=== PATIENT | male | born 1950 | race Caucasian/White ===

== ENCOUNTER → 2017-02-11 | Outpatient (CLI) | payer MEDICARE ==
[~2017-02-11] MED LIST: ABIL2TAB2 PO; ALPR0.5T3 PO; AMLO5TAB2 PO; AMLO5TAB96 PO; ASPI81 PO; ASPI81CH CHEW; CETI10 PO; DICY1TAB26 PO; DIGO0.25 PO; DIOV160T6 PO; DIOV160T60 PO; DYAZ PO; ECHI167T PO; ECHI1CAP; FENO145T2 PO; FLAX10002; FLUO40CA PO; GLIP5 PO; GLIP5TAB8 PO; GLUC1000 PO; IBUP-238 PO; LANO0.2510 PO; LOMO PO; LORA-392 PO; MAGN400T19 PO; METF1000 PO; METO25TA6 PO; OMEGCAP2 PO; OMEP20TA PO; ONCETAB7; PRAS1CAP PO; SOMA350T PO; TAB-TAB PO; TOPR50TA PO; TRAZ50TA12 PO; TRAZ50TA78 PO; TRIA37.53 PO; VITA250C3 CHEW; VITA500T10 PO; ZOFR4TAB3 PO
--- NOTE | 2017-02-15 10:37 | RSPPFT ---
DATE OF PROCEDURE: 02/11/17 COMMENTS: The forced vital capacity, FEV1, FEV1/FVC ratio and FEF 25-75 are all normal. There are no changes noted after bronchodilator. The total lung capacity and residual volumes are normal with a normal RV/TLC ratio. IMPRESSION: This is a normal pulmonary function study. The diffusion capacity is normal. Flow volume loop is also normal.
== END ==
LOC: HRSP 10:38
PROVIDERS: ATTEND Internal Medicine Cardiovascular Disease
DX: R06.02 Shortness of breath (principal)
CPT/HCPCS: 94060; 94726; 94729

== ENCOUNTER 2017-02-12 10:17 | Day surgery (SDC) | payer MEDICARE ==
[~2017-02-12] VITALS: Ht 175.3 cm; Wt 106.0 kg
[~2017-02-12 10:17] MED LIST changes: -ABIL2TAB2 PO; -ALPR0.5T3 PO; -AMLO5TAB2 PO; -ASPI81CH CHEW; -DIGO0.25 PO; -DIOV160T6 PO; -ECHI1CAP; -FLAX10002; -GLIP5TAB8 PO; -METF1000 PO; -METO25TA6 PO; -ONCETAB7; -TRAZ50TA12 PO; -TRIA37.53 PO; -VITA250C3 CHEW
[2017-02-12 10:35] VITALS: BP 171/87; PULSE 70; RESP 16; TEMP 98.1; O2SAT 98
[2017-02-12] MEDS ORDERED: GLIP5TAB8 PO (11:01)
[2017-02-12] MEDS ORDERED: VITA250C3 CHEW (11:01)
[2017-02-12] MEDS ORDERED: METF1000 PO (11:01)
[2017-02-12] MEDS ORDERED: TRIA37.53 PO (11:01)
[2017-02-12] MEDS ORDERED: DIOV160T6 PO (11:01)
[2017-02-12] MEDS ORDERED: ABIL2TAB2 PO (11:01)
[2017-02-12] MEDS ORDERED: ASPI81CH CHEW (11:01)
[2017-02-12] MEDS ORDERED: FENO145T2 PO (11:01)
[2017-02-12] MEDS ORDERED: FLAX10002 (11:01)
[2017-02-12] MEDS ORDERED: AMLO5TAB2 PO (11:01)
[2017-02-12] MEDS ORDERED: OMEP20TA PO (11:01)
[2017-02-12] MEDS ORDERED: SOMA350T PO (11:01)
[2017-02-12] MEDS ORDERED: ALPR0.5T3 PO (11:01)
[2017-02-12] MEDS ORDERED: TRAZ50TA12 PO (11:01)
[2017-02-12] MEDS ORDERED: DIGO0.25 PO (11:01)
[2017-02-12] MEDS ORDERED: ONCETAB7 (11:01)
[2017-02-12] MEDS ORDERED: ECHI1CAP (11:01)
[2017-02-12] MEDS ORDERED: METO25TA6 PO (11:01)
[2017-02-12 11:32] LABS: AUTOMATED NEUTROPHIL # 3.7 TH/MM3 (1.8-7.7); BASOPHIL % 0.7 % (0.0-2.0); EOSINOPHIL # 0.1 TH/MM3 (0-0.4); HEMATOCRIT 37.4 % (39.0-51.0); HEMO FLAGS DIFF FINAL; LYMPH % 25.5 % (9.0-44.0); LYMPHOCYTE # 1.5 TH/MM3 (1.0-4.8); MEAN CELL VOLUME 92.3 FL (80.0-100.0); MEAN CORPUSCULAR HEMOGLOBIN 32.9 PG (27.0-34.0); MEAN CORPUSCULAR HGB CONC 35.6 % (32.0-36.0); MONO % 10.3 % (0.0-8.0); NEUT % 62.5 % (16.0-70.0); PLATELET COUNT 182 TH/MM3 (150-450); RED BLOOD COUNT 4.05 MIL/MM3 (4.50-5.90); RED CELL DISTRIBUTION WIDTH 13.6 % (11.6-17.2); WHITE BLOOD COUNT 5.9 TH/MM3 (4.0-11.0)
[2017-02-12 11:37] LABS: APTT (PATIENT) 30.3 SEC (24.3-30.1); PROTHROMBIN TIME - PATIENT 10.7 SEC (9.8-11.6)
[2017-02-12 11:52] LABS: BICARBONATE 22.2 MEQ/L (21.0-32.0)
[2017-02-12 11:59] LABS: POTASSIUM 4.3 MEQ/L (3.5-5.1)
[2017-02-12] MEDS: SODIUM CHLOR 0.9% 1000 ML INJ 1,000 ML IV SCH ×3 (12:04→22:51)
[2017-02-12] MEDS ORDERED: ASPIRIN 325 MG TAB PO SCH (12:15)
[2017-02-12] MEDS ORDERED: HEPARIN-NS/PF INJ 500 ML ONE (13:04)
[2017-02-12] MEDS ORDERED: MIDAZOLAM HCL 2 MG/2 ML VIAL ONE ×3 (13:04→14:32)
[2017-02-12] MEDS ORDERED: diphenhydrAMINE HCL 50 MG/ML VIAL ONE (13:28)
[2017-02-12] MEDS ORDERED: HYDROCORTISONE SOD SUCCINATE 100 MG VIAL ONE (13:28)
[2017-02-12] MEDS ORDERED: ADENOSINE STRESS TEST INJ 90 MG/30 ML VIAL ONE (14:04)
[2017-02-12] MEDS ORDERED: HEPARIN SODIUM - IV 10,000 UNITS/10 ML VIAL ONE (14:04)
[2017-02-12] MEDS ORDERED: CLOPIDOGREL 300 MG TAB ONE (14:37)
[2017-02-12] MEDS ORDERED: ASPIRIN 81 MG CHEW TAB ONE (14:37)
--- NOTE | 2017-02-12 15:12 | CATHPROC ---
[employer] HIS Report Study Information Study Number Admission Scheduled Start Study Start 1055-17 Feb 12 2017 10:17AM 02/12/2017 Feb 12 2017 12:59PM [facility] Cardiac Catheterization Admit Source Facility Department Other [facility] - Design Assembler Physician and Clinical Staff Initial Ja Zamarripa Log Carrier Operator Kathleen Ruelas RN Recorder Huy Adam RCIS(BS) Scrub Max Martinez,RT(R) Procedures Performed Procedure Location (Site) Vessel Name Angiogram LV LV Ventricle Coronary Angiograms LCA Left Coronary Coronary Angiograms RCA Right Coronary Drug Eluting Inflatio LAD Mid Left Coronary L Heart Cath PTCA LAD Mid Left Coronary Wire insertion Fem Art (right) Femoral Art Equipment Time Souvenir Assembler Description Size Mfg Part Number Used/Scraped [id number] 14:26 Snipd CRITICAL CARE WIRE, Chronos TherapeuticsWATER 180CM 180CM Used *[id number] TRANSDUCER, TRUWAVE [id number] 13:26 QuantumID Technologies * Used W/STOCKCOCK *[id number] 14:31 BOSTON SCIENT[employer] STENT, SYNERGY 2.5 X 16MM Used *[id number] 14:11 BOSTON SCIENTIFIC VL3.5 GUIDE CATHETER RUNWAY FR 6 Used *[id number]- INTRODUCER SET, 13:26 COOK INC. FR 5 SC-NT-U-SST Used MICROPUNCTURE, STIFFENED *[id number] 538-476 *[id number] 538-420 *[id number] [id number] *[id number] 14:43 DAIG/ST. SONAL MEDICAL ANGIOSEAL, FR6 VIP FR 6 Used *[id number] 13:26 MEDLINE INDUSTRIES PACK, CCL CUSTOM * Used *[id number] 13:26 Fetch MD PACER PEN, SKIN DUAL W/ RULER * Used *[id number] BALLOON, 2.5 X 12MM NC [id number] 14:36 MEDTRONIC 12MM Used EUPHORA *[id number] 14:32 Fuse Powered Inc. 30 NIC INDEFLATOR Used *[id number]- 14:12 Ticket ABC MEDICAL SHEATH, FR6.5 PRELUDE 11CM FR 6.5 038ACT Used *[id number] 13:26 Fuse Powered Inc. WIRE, 3MMJ .035 180CM 180CM Used *[id number] PROBE COVER, STERILE [id number] 13:26 AmperionEK MEDICAL * Used ULTRASOUND W/ GEL *[id number] 13:26 NAMIC MANIFOLD, 4 PORT * Used *[id number] 13:26 NYCOMED OMNIPAQUE, 350 MG, 150ML 150ML [id number] Used [id number] 13:26 GARCIA MEDICAL BLANKET,WARM AIR CCL * Used *[id number] 13:26 TERUMO MEDICAL SHEATH, FR4 TERUMO (10CM) FR 4 [id number] Used 14:12 VOLCANO PRIME WIRE, VERRATA 185CM 185CM [id number] *[id number] Used Equipment Model, Serial, Lot Number and Expiration Data Description Model Number Serial Number Lot Number Expiration Date STENT, SYNERGY [id number] 09-22-2017 History: Current Medications Medication Dosage/Unit Route Frequency Last Date/Time Taken Beta David ASA History: Allergies Allergy Reaction Shrimp HIVES History: Risk Factors Family History of Hypertension Dyslipidemia Previous VA Previous Heart Failure Premature CAD Yes Yes Yes No No Prior Valve Prior PCI Prior CABG Surgery No No No Cerebrovascular Peripheral Artery Chronic Lung On Dialysis Diabetes Diabetes Therapy Disease Disease Disease No Yes Yes Yes Yes Oral History: Symptoms/Diagnosis Selection Items Chest pain History: Stress Tests Stress or Imaging Studies Performed Yes Standard Exercise Stress Test No Stress Echo No Stress Test SPECT Stress Test SPECT Result Stress Test SPECT Ischemia Risk/Extent Yes Positive Low Stress Test CMR No Cardiac CTA Coronary Calcium Score No No History: Other Current Smoker No Labs Hgb (g/dl) Hct (%) WBC (l/cumm) Platelets (thousands) 12.00-18.00 37.00-55.00 4.80-10.80 140.00-450.00 13.3 37.4 5.9 182 Glucose (mg/dl) BUN (mg/dl) Creatinine (mg/dl) BUN:Creatinine (1:x) 60.00-110.00 8.00-20.00 0.10-9.00 10.00-20.00 276 19 1.1 17.3 Na (meq/l) K (meq/l) 138.00-146.00 3.80-5.10 134 4.3 INR (PTT:PT) 0.50-2.00 1 CPK-MB (ng/ML) 0.00-7.00 Not Drawn Medication Medication Total Dose (Bolus/Oral) Medication Total Dosage/Unit 1% XYLOCAINE 20 mL ASPIRIN 162 mg BENADRYL 25 mg FENTANYL 75 mcg HEPARIN 6000 units NTG (IC) 200 mcg PLAVIX 600 mg SOLU-CORTEF 100 mg VERSED 5 mg Medications (Bolus/Oral) Medication Time Given Dosage/Unit Administered By Reason SOLU-CORTEF 02/12/2017 1:31:00 PM 100 mg Augustin Ruelasantha 100 mg SOLU-CORTEF given in lab by Kathleen Ruelas RN in Left Hand via Peripheral IV. Ordered by Ja Marin. BENADRYL 02/12/2017 1:32:00 PM 25 mg Kathleen Ruelas 25 mg BENADRYL given in lab by Kathleen Ruelas RN in Right Hand via Peripheral IV. Ordered by Ja Sainz. VERSED 02/12/2017 1:40:35 PM 2 mg Kathleen Ruelas 2 mg VERSED given in lab by Kathleen Ruelas RN in Left Hand via Peripheral IV. Ordered by Ja Segovia. FENTANYL 02/12/2017 1:41:00 PM 50 mcg Kathleen Ruelas 50 mcg FENTANYL given in lab by Kathleen Ruelas RN in Left Hand via Peripheral IV. Ordered by Ja Sainz. 1% XYLOCAINE 02/12/2017 1:41:08 PM 20 mL Kathleen Ruelas 20 mL 1% XYLOCAINE given in lab by Kathleen Ruelas RN in Right Groin via Subcutaneous. Ordered by Ja Segovia. VERSED 02/12/2017 1:55:28 PM 1 mg Kathleen Ruelas 1 mg VERSED given in lab by Kathleen Ruelas RN in Left Hand via Peripheral IV. Ordered by Ja Segovia. HEPARIN 02/12/2017 2:10:00 PM 5000 units Kathleen Ruelas 5000 units HEPARIN given in lab by Kathleen Ruelas RN in Left Hand via Peripheral IV. Ordered by Ja Marin. HEPARIN 02/12/2017 2:27:35 PM 1000 units Kathleen Ruelas 1000 units HEPARIN given in lab by Kathleen Ruelas RN in Left Hand via Peripheral IV. Ordered by Ja Marin. VERSED 02/12/2017 2:28:26 PM 1 mg Ruelas, Kathleen 1 mg VERSED given in lab by Kathleen Ruelas RN in Left Hand via Peripheral IV. Ordered by Ja Segovia. VERSED 02/12/2017 2:32:00 PM 1 mg Glenn Ruelasa 1 mg VERSED given in lab by Kathleen Ruelas RN in Left Hand via Peripheral IV. Ordered by Ja Segovia. FENTANYL 02/12/2017 2:33:13 PM 25 mcg Kathleen Ruelas 25 mcg FENTANYL given in lab by Kathleen Ruelas RN in Left Hand via Peripheral IV. Ordered by Ja Sainz. NTG (IC) 02/12/2017 2:35:09 PM 200 mcg Ja Sgeovia 200 mcg NTG (IC) given in lab by Ja Segovia via Intra-coronary. Ordered by Ja Segovia. PLAVIX 02/12/2017 2:50:00 PM 600 mg Kathleen Ruelas 600 mg PLAVIX given in lab by Kathleen Ruelas RN via Oral. Ordered by Ja Segovia. ASPIRIN 02/12/2017 2:50:00 PM 162 mg Kathleen Ruelas 162 mg ASPIRIN given in lab by Kathleen Ruelas RN via Oral. Ordered by Ja Segovia. Medication (Drip) Medication Time Given Dosage/Unit Concentration/Unit Diluent (ml) Solution IV Solutions 02/12/2017 1:01:42 PM 0 mL (IV) 500 NaCl .9 Patient arrived on IV Solutions in Left Hand via Peripheral IV. Pump/Drip Flow = 20 ml/hr using NaCl .9. Ordered by Ja Segovia. Initial Case Assessment Cardiovascular HR Rhythm NIBP Chest Pain 74 SR 174/75 0 Edema Present Skin color Skin None Normal Warm Dry Circulatory - Right Pulses Dorsalis Pedis Femoral 3 3 Scale (0,1,2,3,4,d) Circulatory - Left Pulses Dorsalis Pedis Femoral 3 3 Scale (0,1,2,3,4,d) Circulatory - Lower Extremities Color Lower Right Color Lower Left Normal Normal Neurological State Oriented to time-place- Alert Moves all extremities person Respiration - General Respiration Rate SpO2 (%) (B/min) 9 99 Final Case Assessment Cardiovascular HR Rhythm NIBP Chest Pain 74 SR 174/75 0 Edema Present Skin color Skin None Normal Warm Dry Circulatory - Right Pulses Dorsalis Pedis Femoral 3 3 Scale (0,1,2,3,4,d) Circulatory - Left Pulses Dorsalis Pedis Femoral 3 3 Scale (0,1,2,3,4,d) Circulatory - Lower Extremities Color Lower Right Color Lower Left Normal Normal Neurological State Oriented to time-place- Alert Moves all extremities person Respiration - General Respiration Rate SpO2 (%) (B/min) 9 99 Chronological Log Time Study Chronological Log 13:00:06 Patient arrived via Bed. 13:00:07 Patient Name, D.O.B, / Armband Verified By R.N. 13:00:07 Consent signed by the physician and the patient and verified by the Design Assembler staff. 13:00:08 Pre-op and post- op instructions given; patient acknowledges understanding of instructions. 13:00:09 Verbal Stimulation=2 Physical Stimulation=2 Airway=2 Respiration=2 TOTAL=8. (0=absent, 1=li mited, 2=present) 13:00:30 Presedation assessment performed by Design Assembler RN. 13:00:38 Patient has been NPO for Less than 6Hrs. 13:00:40 Skin Breakdown- Vitals capture started with the following parameters, Patient=Adult, Interval=5 min, Initial Pr rpprjo=196 mmHg, 13:00:45 Deflation Rate=5 mmHg 13:01:01 Patient Warmer Placed on the Table. 13:01:36 Reference ECG taken 13:01:40 A # 20 IV was noted in the Hand (left). Grade = 0 Patient arrived on IV Solutions in Left Hand via Peripheral IV. Pump/Drip Flow = 20 ml/hr using NaCl .9. Ordered by 13:01:42 Ja Segovia. 13:01:42 History and physical on the chart or being dictated. Assessment: Initial Case, HR=74 BPM, Rhythm=SR, SGAO=311/75 mmhg, Chest Pain=0, Edema=None, Col or=Normal, Skin = Warm, Dry Right Pulses: Hill Ped=3, Femoral=3 Left Pulses: Hill Ped=3, Femoral=3 13:01:45 Lower Right Extremities: Color=Normal Lower Left Extremities: Color=Normal Neurological: State=Alert, Ox3, SHIPMAN Respiration: Resp=9 B/min, SpO2=99 % 13:01:59 HR=77 bpm, BYIE=631/79 mmhg, SpO2=98.0 %, Resp=26 B/min, Pain=0, Shruthi=10, Mares=2 13:06:31 HR=78 bpm, ITGI=379/81 mmhg, SpO2=97.0 %, Resp=19 B/min, Pain=0, Shruthi=10, Mares=2 13:11:28 HR=82 bpm, INYE=903/81 mmhg, SpO2=98.0 %, Resp=20 B/min, Pain=0, Shruthi=10, Mares=2 13:12:30 MD paged 13:14:53 Pressure channel 1 zeroed. 13:16:33 HR=77 bpm, UTFK=014/75 mmhg, SpO2=98.0 %, Resp=23 B/min, Pain=0, Shruthi=10, Mares=2 13:21:30 HR=75 bpm, GZED=915/76 mmhg, SpO2=97.0 %, Resp=35 B/min, Pain=0, Shruthi=10, Mares=2 13:22:20 Bilateral groins prepped with 2% chlorhexidine, and with a 3 min. waiting time. 13:26:31 HR=75 bpm, LTDY=030/75 mmhg, SpO2=97.0 %, Resp=16 B/min 100 mg SOLU-CORTEF given in lab by Kathleen Ruelas, RN in Left Hand via Peripheral IV. Ordere d by Luca, 13:31:00 Humayun. 13:31:30 HR=76 bpm, VSWI=149/81 mmhg, SpO2=98.0 %, Resp=16 B/min, Pain=0, Shruthi=10, Mares=2 25 mg BENADRYL given in lab by Kathleen Ruelas, RN in Right Hand via Peripheral IV. Ordered b y Luca, 13:32:00 Humayun. 13:37:08 HR=78 bpm, FADN=245/78 mmhg, SpO2=98.0 %, Resp=13 B/min, Pain=0, Shruthi=10, Mares=2 13:37:12 MD arrived. Time Out. Correct patient, correct procedure,correct physician, power injector loaded with cont rast with surgical team 13:39:39 present. Time Out Concurred by , individual staff in procedure 13:40:35 2 mg VERSED given in lab by Kathleen Ruelas RN in Left Hand via Peripheral IV. Ordered b y Ja Segovia. 50 mcg FENTANYL given in lab by Kathleen Ruelas RN in Left Hand via Peripheral IV. Ordered b y Luca, 13:41:00 Humayun. 13:41:02 Case Start 20 mL 1% XYLOCAINE given in lab by Kathleen Ruelas RN in Right Groin via Subcutaneous. Order ed by Luca, 13:41:08 Humayun. 13:41:33 HR=76 bpm, LHZS=892/83 mmhg, SpO2=94.0 %, Resp=25 B/min, Pain=0, Shruthi=10, Mares=2 13:42:45 Access site was Right Femoral Artery. A INTRODUCER SET, MICROPUNCTURE, STIFFENED FR 5 was advanced into the Fem Art (right) using the 13:44:25 Percutaneous technique. A SHEATH, FR4 TERUMO (10CM) FR 4 was exchanged in the Fem Art (right). This was necessary in or jg to :44:39 accomodate a larger catheter. A JL 4.0 INFINITI CATHETER FR 4 was advanced over a wire. OMNIPAQUE, 350 MG, 150ML 150ML was us ed for 13:45:06 injections. Recorded Pressure: Ao, HR=74, Condition=Condition 1 13:45:54 (Aorta) Ao 132/66/92 13:46:30 HR=77 bpm, AJKE=369/76 mmhg, SpO2=94.0 %, Resp=14 B/min, Pain=0, Shruthi=10, Mares=2 13:46:38 The LCA was injected and visualized at various angles. OMNIPAQUE, 350 MG, 150ML 150ML used . 13:51:33 HR=81 bpm, ULWH=303/74 mmhg, SpO2=97.0 %, Resp=21 B/min, Pain=0, Shruthi=10, Mares=2 13:55:14 Catheter was removed 13:55:16 A catheter was advanced over a wire. contrast was used for injections. 13:55:17 The RCA was injected and visualized at various angles. OMNIPAQUE, 350 MG, 150ML 150ML used . 13:55:28 1 mg VERSED given in lab by Kathleen Ruelas, RN in Left Hand via Peripheral IV. Ordered b y Ja Segovia. 13:56:32 HR=83 bpm, KSJD=304/76 mmhg, SpO2=94.0 %, Resp=17 B/min, Pain=0, Shruthi=10, Mares=2 14:01:33 HR=76 bpm, FBED=103/74 mmhg, SpO2=98.0 %, Resp=13 B/min, Pain=0, Shruthi=10, Mares=2 14:04:08 Catheter was removed A PIGTAIL ANG. INFINITI CATHETER FR 4 was advanced over a wire. OMNIPAQUE, 350 MG, 150ML 150ML was used 14:05:15 for injections. Recorded Pressure: LV, HR=80, Condition=Condition 1 14:05:38 (Left Ventricle) LV 149/5/12 14:06:31 The LV was injected at 8 cc/sec for a total of 32. OMNIPAQUE, 350 MG, 150ML 150ML used. 14:06:34 HR=74 bpm, PKZM=503/71 mmhg, SpO2=96.0 %, Resp=25 B/min, Pain=0, Shruthi=10, Mares=2 Recorded Pressure: LV, Ao, HR=79, Condition=Condition 1 14:07:20 (Left Ventricle) LV 149/-5/21, (Aorta) Ao 151/70/105 14:08:09 Catheter was removed 5000 units HEPARIN given in lab by Kathleen Ruelas, DEANA in Left Hand via Peripheral IV. Ordere d by Luca, 14:10:00 Ja. A SHEATH, FR6.5 PRELUDE 11CM FR 6.5 was exchanged in the Fem Art (right). This was necessary in order to 14:11:06 accomodate a larger catheter. A VL3.5 GUIDE CATHETER RUNWAY FR 6 was advanced over a wire. OMNIPAQUE, 350 MG, 150ML 150ML was used for 14:11:12 injections. 14:11:31 HR=77 bpm, ZSAL=918/77 mmhg, SpO2=94.0 %, Resp=21 B/min, Pain=0, Shruthi=10, Mares=2 14:16:32 HR=80 bpm, ZWDQ=819/77 mmhg, SpO2=95.0 %, Resp=20 B/min, Pain=0, Shruthi=10, Mares=2 14:18:00 Activated Clotting Time Drawn 14:18:34 ACT (Normal Range 90-180) = 234 14:19:27 A PRIME WIRE, VERRATA 185CM 185CM was inserted via Fem Art (right). 14:21:35 HR=79 bpm, QXIG=309/75 mmhg, SpO2=97.0 %, Resp=20 B/min, Pain=0, Shruthi=10, Mares=2 14:25:00 Flow Wire was was placed in the LAD Mid. The FFR measures ~FFR~ percent. The IFR measures 0 .77 Percent. 14:26:00 The PRIME WIRE, VERRATA 185CM 185CM was removed. 14:27:17 HR=83 bpm, RBWB=965/80 mmhg, SpO2=98.0 %, Resp=15 B/min, Pain=0, Shruthi=10, Mares=2 1000 units HEPARIN given in lab by Kathleen Ruelas, DEANA in Left Hand via Peripheral IV. Ordere d by Luca, 14:27:35 Ja. 14:28:00 A WIRE, ASAHI PROWATER 180CM 180CM was inserted via Fem Art (right). 14:28:26 1 mg VERSED given in lab by Kathleen Ruelas, RN in Left Hand via Peripheral IV. Ordered b y Ja Segovia. 14:29:00 Interventional wire has crossed the lesion A STENT, SYNERGY 2.5 X 16MM was advanced through a VL3.5 GUIDE CATHETER RUNWAY FR 6 over a WIRE , ASAHI 14:31:30 PROWATER 180CM 180CM. 14:31:35 HR=84 bpm, DUVA=833/80 mmhg, SpO2=96.0 %, Resp=17 B/min, Pain=0, Shruthi=10, Mares=2 A STENT, SYNERGY 2.5 X 16MM was deployed using a 30 NIC INDEFLATOR at 11 atmospheres for 15 sec onds in the 14:31:55 LAD Mid. 14:32:00 1 mg VERSED given in lab by Kathleen Ruelas, DEANA in Left Hand via Peripheral IV. Ordered Ja Aquino. 25 mcg FENTANYL given in lab by Kathleen Ruelas RN in Left Hand via Peripheral IV. Ordered chaya Segovia 14:33:13 Ja. 14:33:28 Delivery device removed 14:35:09 200 mcg NTG (IC) given in lab by Ja Segovia via Intra-coronary. Ordered by Curt Segovia. 14:36:36 HR=86 bpm, SWUR=318/81 mmhg, SpO2=93.0 %, Resp=11 B/min, Pain=0, Shruthi=10, Mares=2 A BALLOON, 2.5 X 12MM NC EUPHORA 12MM was inserted over WIRE, ASAHI PROWATER 180CM 180CM via th e Fem 14:36:41 Art (right). A BALLOON, 2.5 X 12MM NC EUPHORA 12MM over a WIRE, ASAHI PROWATER 180CM 180CM in the LAD Mid wa s 14:36:50 inflated using a 30 NIC INDEFLATOR at 12 nic for 12 sec. 14:38:19 Balloon Removed. 14:39:47 Activated Clotting Time Drawn 14:41:01 Wire removed 14:41:06 Catheter was removed 14:41:39 HR=77 bpm, PKJS=630/75 mmhg, SpO2=96.0 %, Resp=15 B/min, Pain=0, Shruthi=10, Mares=2 14:41:44 An injection in the Fem Art (right) was made through the SHEATH, FR6.5 PRELUDE 11CM FR 6.5. Assessment: Final Case, HR=74 BPM, Rhythm=SR, RNFY=922/75 mmhg, Chest Pain=0, Edema=None, Color =Normal, Skin = Warm, Dry Right Pulses: Hill Ped=3, Femoral=3 Left Pulses: Hill Ped=3, Femoral=3 14:42:53 Lower Right Extremities: Color=Normal Lower Left Extremities: Color=Normal Neurological: State=Alert, Ox3, [place] Respiration: Resp=9 B/min, SpO2=99 % 14:43:17 ANGIOSEAL, FR6 VIP FR 6 placement in the Fem Art (right) 14:43:36 Case End 14:44:13 Sterile dressing applied to site 14:44:14 No case complications noted. 14:44:14 Cine recording checked. 14:45:33 Activated Clotting Time Drawn 14:45:36 ACT (Normal Range 90-180) = 242 14:46:38 HR=75 bpm, DJSM=612/84 mmhg, SpO2=97.0 %, Resp=17 B/min, Pain=0, Shruthi=10, Mares=2 14:50:00 600 mg PLAVIX given in lab by Kathleen Ruelas RN via Oral. Ordered by Ja Segovia. 14:50:00 162 mg ASPIRIN given in lab by Kathleen Ruelas RN via Oral. Ordered by Ja Seogvia. 14:54:41 Contrast Scanned 14:54:43 Implantable Device card placed in patient's chart. 14:54:44 Bedside Report will be given. 14:54:47 A Left Heart Cath was performed. 14:54:48 Patient moved to [facility] End Study - Contrast Media Used In Study Contrast Total Opened (mL) Total Used (mL) Total Wasted (mL) Omnipaque 160 160 0 End Study - Maximum Contrast Load Max Contrast Load (mL) 488.2 End Study - Radiation Exposure Fluoro Time (minutes) 10.9 End Study - Patient Disposition Complications Transferred To Interventional Outcome No Telemetry Bed successful
[2017-02-12] MEDS ORDERED: ATROPINE SULFATE 1 MG/ML VIAL IV PRN (15:15)
[2017-02-12] MEDS ORDERED: BACITRACIN OINT 0.9 GM PKT TOP ONE (15:15)
[2017-02-12] MEDS ORDERED: SODIUM CHLOR 0.9% 250 ML INJ 250 ML IV PRN (15:15)
[2017-02-12] MEDS ORDERED: oxyCODONE/ACETAMINOPHEN 10 MG/325 MG TAB PO PRN (15:15)
[2017-02-12] MEDS ORDERED: ACETAMINOPHEN 325 MG TAB PO PRN (15:15)
[2017-02-12] MEDS ORDERED: oxyCODONE/ACETAMINOPHEN 5 MG/325 MG TAB PO PRN (15:15)
[2017-02-12] MEDS ORDERED: TEMAZEPAM 15 MG CAP PO PRN (15:15)
[2017-02-12] MEDS ORDERED: ONDANSETRON HCL 4 MG/2 ML VIAL IV PRN (15:15)
[2017-02-12] MEDS ORDERED: MISC INFORMATION XX ONE (15:15)
[2017-02-12] MEDS ORDERED: IOHEXOL 350 MG/ML 100 ML BTL (for Cath Lab) OTHER ONE (15:51)
[2017-02-12] MEDS: amLODIPine BESYLATE 5 MG TAB PO SCH (16:00)
[2017-02-12] MEDS: ATORVASTATIN 40 MG TAB PO SCH (16:00)
[2017-02-12] MEDS: METOPROLOL SUCCINATE 25 MG EXTENDED RELEASE TAB PO SCH (16:00)
[2017-02-12 18:46] VITALS: BP 175/77; PULSE 77; TEMP 98.4; O2SAT 98
[2017-02-12 19:00] VITALS: BP 179/76; PULSE 76; RESP 16; TEMP 98.2; O2SAT 99
[2017-02-12] MEDS ORDERED: METOPROLOL TARTRATE 5 MG/5 ML VIAL IV PUSH PRN (19:00)
[2017-02-12] MEDS ORDERED: amLODIPine BESYLATE 5 MG TAB PO ONE (19:15)
[2017-02-12] MEDS ORDERED: GLUCAGON 1 MG/ML VIAL OTHER PRN (19:45)
[2017-02-12] MEDS ORDERED: DEXTROSE 50% IN WATER 50 ML VIAL(D50) IV PUSH PRN (19:45)
[2017-02-12] MEDS: LOW DOSE INSULIN NOVOLIN REGULAR SUPPLEMENTAL SCALE SQ SCH (20:00)
[2017-02-12] MEDS ORDERED: ATORVASTATIN 10 MG TAB PO SCH (21:00)
[2017-02-12] MEDS: VALSARTAN 160 MG TAB PO SCH (21:29)
[2017-02-12] MEDS: ENALAPRILAT 1.25 MG/ML VIAL IV PUSH PRN (22:33)
[2017-02-12 23:00] VITALS: BP 183/83; PULSE 77; RESP 16; TEMP 98.2; O2SAT 99
[2017-02-13] VITALS (12 sets, daily range): BP systolic 151–180; BP diastolic 71–83; PULSE 64–86; RESP 16; TEMP 97.9–98.3; O2SAT 98–100
[2017-02-13] MEDS: LOW DOSE INSULIN NOVOLIN REGULAR SUPPLEMENTAL SCALE SQ SCH ×4 (04:00→12:37)
[2017-02-13] MEDS: ENALAPRILAT 1.25 MG/ML VIAL IV PUSH PRN (04:23)
[2017-02-13] MEDS: amLODIPine BESYLATE 5 MG TAB PO SCH (08:37)
[2017-02-13] MEDS: VALSARTAN 160 MG TAB PO SCH (08:37)
[2017-02-13] MEDS: METOPROLOL SUCCINATE 25 MG EXTENDED RELEASE TAB PO SCH (08:38)
[2017-02-13] MEDS: ATORVASTATIN 40 MG TAB PO SCH (08:38)
[2017-02-13] MEDS ORDERED: TRIAMTERENE/HCTZ 37.5 MG/25 MG CAP PO SCH (09:00)
[2017-02-13] MEDS ORDERED: CLOPIDOGREL 75 MG TAB PO SCH (09:00)
[2017-02-13] MEDS ORDERED: ASPIRIN 81 MG CHEW TAB PO SCH (09:00)
[2017-02-13] MEDS: SODIUM CHLOR 0.9% 1000 ML INJ 1,000 ML IV SCH (12:04)
--- NOTE | 2017-02-13 14:00 | EKG ---
Date Performed: 02/12/2017 Time Performed: 11:03:28 PTAGE: 66 years EKG: Sinus rhythm Small inferior Q waves of undetermined significance Compared to prior tracing no significant change Abnormal ECG PREVIOUS TRACING : 04/02/2016 00.34 DOCTOR: David Jones Interpretating Date/Time 02/13/2017 13:59:51
--- NOTE | 2017-02-13 14:02 | EKG ---
Date Performed: 02/13/2017 Time Performed: 07:58:26 PTAGE: 66 years EKG: Sinus rhythm Small inferior Q waves of undetermined significance Poor R wave progression across the precordium, p robable normal variant Compared to prior tracing no significant change Abnormal ECG PREVIOUS TRACING : 02/12/2017 11.03 DOCTOR: David Jones Interpretating Date/Time 02/13/2017 14:01:02
--- NOTE | 2017-02-13 20:49 | MA ---
cc: JA SEGOVIA M.D. DATE OF SURGERY 02/13/17 PROCEDURE PERFORMED 1. Cardiac catheterization. 2. Intracoronary stent placement to the LAD. INDICATION 1. Continued shortness of breath on exertion, quite severe. Negative. 2. Negative nuclear stress test. CONSENT Full informed consent was obtained prior to the procedure. The risks of , bleeding or infarction, stroke, foreseen and unforeseen complications are reviewed. The patient fully appeared to understand the risks. PROCEDURAL STATEMENT The patient was draped, prepped in usual manner. Right femoral artery was entered using a micropuncture technique with ultrasound via the 4-Kazakh sheath. Left and right coronary catheters used to intubate the left and right coronaries, pigtail catheter left ventricle. Multiple angiographic views were carried out. At the end of the catheterization procedure all catheters were removed. The 4-Kazakh sheath was exchanged for a 6-Kazakh sheath. The patient given heparin. ACT of 234 was obtained. Later in the case the patient was given a following dose of 1000 units of heparin with the final ACT of 242. A __ left guide catheter was used to intubate the left main. A [employer] wire was used to cross the LAD lesion. IFR of 0.77 was obtained which was felt to be positive. A Synergy stent 16 mm x 2.5 was placed at nominal pressures across the two LAD lesions. It was inflated to nominal pressures. It was postdilated using a 2.5 noncompliant balloon to 12 atmospheres. Check angiograms were performed. Intracoronary nitroglycerin was used during the case, at the end of the procedure, right femoral angiogram was performed and an Angio-Seal placed in the usual manner. The patient was returned to his room in stable condition. FINDINGS HEMODYNAMICS: The aortic pressure was 151/70 with mean pressure of 105. The left ventricle pressure was 149 with a left ventricular end diastolic pressure of 21. LEFT VENTRICULOGRAM: The overall left ventricular ejection fraction was estimated at 60%. There was no evidence of significant mitral regurgitation or mural thrombus. CORONARIES: Left main was large and free of significant disease. Left anterior descending artery was a large vessel, it was diffusely diseased throughout its length. In its proximal segment there was a 75% stenosis. The remainder of the LAD vessel was large with diffuse disease throughout. Following stent placement this reduced to 0%. The circumflex artery was a large artery. There was a very high first obtuse marginal branch, almost in the region of the position of a ramus branch. This had some mild ostial disease of 25%. This is a large vessel but otherwise is free of significant disease. The remainder of the circumflex ended in a small to medium bifurcating OM2. The right coronary artery was a large dominant artery with a large posterior descending artery and large posterolateral branch. It also had some mild diffuse disease with no significant stenosis. CONCLUSION High-grade LAD stenosis confirmed by IFR (FFR without adenosine) to be significant, stented using a Synergy 2.5 mm x 16 mm drug-eluting stent postdilated to 0%). Proximal LAD lesion was reduced from 75 to 0%. Angio-Seal was used to seal the right femoral artery. PLAN Will plan to discharge the patient in the a.m. Will follow up in my office in approximately one to two weeks' time. Ja Segovia MD, FRCP,[facility]DEYANIRA /3:02 PM /8:21 PM
--- NOTE | 2017-02-21 23:44 | MA ---
cc: JA SEGOVIA M.D. DATE: 02/13/2017 ADDENDUM: 1. Lesion length was 14 mm JORDI grade 3 flow before and after treatment with stent. 2. The patient was discharged with reconsideration of medication. 3. The patient was discharged on his usual home medications and was also discharged on Plavix and given a prescription for such. The patient was also discharged on aspirin, Plavix, Dyazide, Lipitor 10 milligrams p.o. q day. Prescription given for that, usual insulin, Glucagon, Amlodipine, valsartan, metoprolol. Ja Segovia MD, CP,[facility] /3:38 PM /11:45 PM [facility]
== END 2017-02-13 17:50 | disposition home or self-care (01) ==
LOC: HDOC 10:17 → HDIC 10:19 → HCIS 18:09 → HDOC 02-13 17:50
PROVIDERS: ATTEND Internal Medicine Cardiovascular Disease
DX: I25.10 Atherosclerotic heart disease of native coronary artery without angina pectoris (principal); R07.9 Chest pain, unspecified; R06.02 Shortness of breath
CPT/HCPCS: 80048; 82947; 82948; 85002; 85025; 85610; 85730; 92928; 93005; 93458; 93571; C1760; C1769; C1874; C1887; C1893; G0269; J0153; J1200; J1644; J1720; J2250; J3010; Q9967